=== PATIENT | female | born 1970 | race Caucasian/White ===

== ENCOUNTER 2020-07-24 10:13 | Emergency (ER) | payer OTHER ==
[~2020-07-24] VITALS: Ht 172.7 cm; Wt 118.2 kg
[2020-07-24] MEDS ORDERED: VENL37.598 PO ×2 (10:42→14:36)
[2020-07-24] MEDS ORDERED: BENZONATATE 100 MG CAP PO ONE (11:30)
[2020-07-24 11:54] VITALS: O2SAT 97
[2020-07-24 11:59] LABS: BASO # 0.1 10^3/uL (0.0-0.2); BASO % 0.9 % (0.0-1.0); EOS # 0.3 10^3/uL (0.0-0.5); EOS % 2.8 % (0.0-3.0); HEMATOCRIT 40.7 % (36.0-47.0); HEMOGLOBIN 13.4 g/dl (12.0-15.5); LYMPH % 33.5 % (24.0-44.0); MEAN CORPUSCULAR HEMOGLOBIN 30.9 pg (27.0-33.0); MEAN CORPUSCULAR HGB CONC 32.9 g/dl (32.0-36.5); MEAN CORPUSCULAR VOLUME 93.8 fl (80.0-96.0); MONO # 0.6 10^3/uL (0.0-0.8); MONO % 6.5 % (0.0-5.0); NEUTROPHILS # 4.9 10^3/uL (1.5-8.5); PLATELET COUNT, AUTOMATED 416 10^3/uL (150-450); RED BLOOD COUNT 4.34 10^6/uL (4.00-5.40); WHITE BLOOD COUNT 8.8 10^3/uL (4.0-10.0)
[2020-07-24] MEDS: COMBIVENT RESPIMAT 100-20MCG INHALER 4GM INH SCH ×2 (12:09→12:39)
--- NOTE | 2020-07-24 12:34 | REPVR ---
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 COMPARISON: No relevant prior studies available. FINDINGS: Lungs: Calcified granuloma in the right lung apex. Pleural space: Unremarkable. No pleural effusion. No pneumothorax. Heart/Mediastinum: Unremarkable. No cardiomegaly. Vasculature: Calcification of the thoracic aorta. Bones/joints: Unremarkable. IMPRESSION: No acute cardiopulmonary abnormality. Electronically signed by: Angela Morejon On 07/24/2020 12:33:40 PM
[2020-07-24 12:41] LABS: ALBUMIN 3.9 GM/DL (3.2-5.2); ALT/SGPT 25 U/L (12-78); BILIRUBIN,DIRECT < 0.1 MG/DL (0.0-0.2); BILIRUBIN,TOTAL 0.2 MG/DL (0.2-1.0); LIPASE 78 U/L (73-393); TOTAL PROTEIN 7.6 GM/DL (6.4-8.2)
[2020-07-24] MEDS ORDERED: ISOVUE-370 76% 100ML VIAL As Ordered ONE (12:43)
--- NOTE | 2020-07-24 13:41 | REPVR ---
PROCEDURE INFORMATION: Exam: CT Abdomen And Pelvis With Contrast Exam date and time: 07/24/2020 1:12 PM Age: 49 years old Clinical indication: Abdominal pain; Generalized; Additional info: L sided abd pain, h/o mesh hernia repair TECHNIQUE: Imaging protocol: Computed tomography of the abdomen and pelvis with intravenous contrast. Radiation optimization: All CT scans at this facility use at least one of these dose optimization techniques: automated exposure control; mA and/or kV adjustment per patient size (includes targeted exams where dose is matched to clinical indication); or iterative reconstruction. Contrast material: ISOVUE 370; Contrast volume: 100 ml; Contrast route: INTRAVENOUS (IV); COMPARISON: No relevant prior studies available. FINDINGS: Liver: Mild hepatomegaly. Gallbladder and bile ducts: Normal. No calcified stones. No ductal dilation. Pancreas: Normal. No ductal dilation. Spleen: Normal. No splenomegaly. Adrenals: Normal. No mass. Kidneys and ureters: Normal. No hydronephrosis. Stomach and bowel: Unremarkable. No obstruction. No mucosal thickening. Appendix: No evidence of appendicitis. Intraperitoneal space: Mild mesenteric edema. Vasculature: Mild atherosclerotic changes. Lymph nodes: Mildly prominent periportal lymph nodes, measuring up to 13 mm in short axis dimension, most likely reactive in nature. Several mildly enlarged mesenteric lymph nodes, measuring up to 12 mm in short axis dimension. Urinary bladder: Unremarkable as visualized. Reproductive: The patient appears to be status post hysterectomy. Bones/joints: Degenerative change of the spine. Mild bilateral hip joint DJD. Chronic right rib fracture. Soft tissues: Surgical mesh associated with the ventral abdominal wall. No recurrent hernia. IMPRESSION: 1. Mild mesenteric lymphadenopathy and mild mesenteric edema. 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 2. Mild hepatomegaly. Electronically signed by: Angela Morejon On 07/24/2020 13:40:24 PM
--- NOTE | 2020-07-24 13:48 | REPVR ---
PROCEDURE INFORMATION: Exam: CT Angiography Chest With Contrast Exam date and time: 07/24/2020 1:12 PM Age: 49 years old Clinical indication: Cough; Additional info: Cough, h/o pe, nodule on cxr TECHNIQUE: Imaging protocol: Computed tomographic angiography of the chest with intravenous contrast. 3D rendering (Not supervised by radiologist): MIP and/or 3D reconstructed images were created by the technologist. Radiation optimization: All CT scans at this facility use at least one of these dose optimization techniques: automated exposure control; mA and/or kV adjustment per patient size (includes targeted exams where dose is matched to clinical indication); or iterative reconstruction. Contrast material: ISOVUE 370; Contrast volume: 100 ml; Contrast route: INTRAVENOUS (IV); COMPARISON: CR PORTABLE CHEST X-RAY 07/24/2020 12:05 PM FINDINGS: Pulmonary arteries: Normal. No pulmonary emboli. Aorta: Minimal atherosclerotic change of the thoracic aorta. Lungs: Right upper lobe pneumatoceles. Noncalcified 2 mm right middle lobe pulmonary nodule (series 401, image 105). Noncalcified 4 mm right middle lobe pulmonary nodule, adjacent to the minor fissure (series 402, image 38). Pleural space: Unremarkable. No pneumothorax. No pleural effusion. Heart: Unremarkable. No cardiomegaly. No pericardial effusion. Lymph nodes: Mildly prominent right hilar lymph nodes, measuring up to 13 mm in short axis dimension. Bones/joints: Benign bone island in the medial right clavicle. Degenerative change of the spine. Chronic right posterior rib fracture. Soft tissues: Unremarkable. Other findings: Abdomen/pelvis findings are dictated separately. IMPRESSION: 1. Noncalcified 2 mm and 4 mm nodules in the right lung. For patients at low risk (minimal or absent history of smoking and of other known risk factors), no routine follow-up is indicated. For patients at high risk (history of smoking or of other known risk factors), consider optional CT Chest at 12 months. (Reference: Cresencio) 2. Mildly prominent right hilar lymph nodes. REFERENCES: Cresencio West, et al. Guidelines for Management of Incidental Pulmonary Nodules Detected on CT Images: From the Fleischner Society 2017. Radiology. 2017;284(1):228-243. Electronically signed by: Angela Morejon On 07/24/2020 13:48:14 PM
[2020-07-24 14:05] LABS: CPK CREATINE PHOSPHOKINASE 84 U/L (26-192); MB/CK RELATIVE INDEX 2.38 (< OR =4); NT-PRO BNP 25 PG/ML (<125); TROPONIN I < 0.02 NG/ML (< 0.10)
[2020-07-24] MEDS ORDERED: TESS100C PO (14:32)
[2020-07-24] MEDS ORDERED: PROAAER10 INH (14:32)
[2020-07-24 14:57] VITALS: BP 127/86
--- NOTE | 2020-07-26 09:07 | ED PDOC ---
Post-Departure Follow-Up called patient to inform of negative COVID test. pt expressed good understanding . DELFINA DELGADILLO TAYLOR E. PA-C Jul 26, 2020 09:07
--- NOTE | 2020-07-26 15:26 | ED PDOC ---
Post-Departure Follow-Up radiology report faxed to Jessica Potts MD Jul 26, 2020 15:26
== END 2020-07-24 14:59 | disposition home or self-care (01) ==
LOC: M ED 10:13
DX: J45.909 Unspecified asthma, uncomplicated (principal); J98.01 Acute bronchospasm; J06.9 Acute upper respiratory infection, unspecified; B34.9 Viral infection, unspecified; R10.9 Unspecified abdominal pain; I88.0 Nonspecific mesenteric lymphadenitis; R91.8 Other nonspecific abnormal finding of lung field; E66.9 Obesity, unspecified; F41.9 Anxiety disorder, unspecified; F32.9 Major depressive disorder, single episode, unspecified; Z86.718 Personal history of other venous thrombosis and embolism; Z87.891 Personal history of nicotine dependence; F19.11 Other psychoactive substance abuse, in remission; Z79.899 Other long term (current) drug therapy; Z88.5 Allergy status to narcotic agent
CPT/HCPCS: 71045; 71275; 74177; 80047; 80076; 81001; 82550; 82553; 83690; 83880; 85025; 99284; Q9967; U0003

== ENCOUNTER → 2020-10-21 | Outpatient (REF) | payer OTHER, MEDICAID ==
[~2020-10-21] MED LIST: PROAAER10 INH; TESS100C PO; VENL37.598 PO
[2020-10-21 16:06] LABS: HEMATOCRIT 38.1 % (36.0-47.0); HEMOGLOBIN 12.2 g/dl (12.0-15.5); MEAN CORPUSCULAR VOLUME 93.6 fl (80.0-96.0); PLATELET COUNT, AUTOMATED 344 10^3/uL (150-450); RED BLOOD COUNT 4.07 10^6/uL (4.00-5.40); WHITE BLOOD COUNT 7.4 10^3/uL (4.0-10.0)
[2020-10-21 16:45] LABS: ALBUMIN 4.2 GM/DL (3.2-5.2); ALT/SGPT 35 U/L (12-78); BILIRUBIN,TOTAL 0.5 MG/DL (0.2-1.0); BLOOD UREA NITROGEN 14 MG/DL (7-18); CALCIUM LEVEL 8.9 MG/DL (8.5-10.1); CARBON DIOXIDE LEVEL 29 MEQ/L (21-32); CHLORIDE LEVEL 105 MEQ/L (98-107); CHOLESTEROL LEVEL 230 MG/DL (<200); CHOLESTEROL RISK RATIO 4.791 (<5); CREATININE FOR GFR 0.77 MG/DL (0.55-1.30); GLOMERULAR FILTRATION RATE > 60.0 (>51); GLUCOSE, FASTING 94 MG/DL (70-100); HDL CHOLESTEROL 48 MG/DL (>40); LDL CHOLESTEROL 160 MG/DL (<100); NON-HDL-C 182 MG/DL; SODIUM LEVEL 138 MEQ/L (136-145); THYROID STIMULATING HORMONE 0.807 uIU/ML (0.358-3.740); TOTAL 25(OH) VITAMIN D 18.1 NG/ML (30.0-100.0); TOTAL PROTEIN 6.8 GM/DL (6.4-8.2); TRIGLYCERIDES LEVEL 112 MG/DL (<150)
== END ==
LOC: M LAB REF 15:42
PROVIDERS: ATTEND Physician Assistant
DX: K59.09 Other constipation (principal); Z00.00 Encounter for general adult medical examination without abnormal findings; F43.10 Post-traumatic stress disorder, unspecified; Z13.220 Encounter for screening for lipoid disorders; J45.20 Mild intermittent asthma, uncomplicated

== ENCOUNTER → 2021-01-05 | Outpatient (CLI) | payer OTHER ==
--- NOTE | 2021-01-05 15:57 | PFTRPT ---
Height: 68.00 Inches Weight: 286.00 Lbs BSA: 2.38 Diagnosis: J43.1 DATE: 01/05/2021 ORDERING PHYSICIAN: PERCY Hernandez Pre and post bronchodilator studies have excellent technical quality. The patient had marked difficulty with required maneuvers and performance of the required maneuvers is markedly suboptimal which hampered data acquisition. Forced vital capacity is normal. FEV1 out of proportion. Obstructive index is therefore reduced. Expiratory limit of the flow-volume loop suggests markedly suboptimal performance. No significant bronchodilator response is identified. Total lung capacity is normal. Residual volume is in proportion. Diffusing capacity unable to be performed as the patient was unable to perform the required maneuver. Hemoglobin is acceptable at 13.6. Airway resistance and conductance are normal. IMPRESSION: Due to the patient's inability to perform the required maneuvers, data acquisition is hampered but suspect underlying normal study. MTDD
== END ==
LOC: M CARPUL 15:14
PROVIDERS: ATTEND Physician Assistant
DX: J43.1 Panlobular emphysema (principal)

== ENCOUNTER → 2021-01-05 | Outpatient (CLI) | payer OTHER ==
--- NOTE | 2021-01-05 17:50 | REP ---
INDICATION: PAIN IN LEFT KNEE/ PFT APPT FIRST. COMPARISON: None. TECHNIQUE: Five views of the left knee. FINDINGS: Five views of the left knee demonstrate the diffuse osteoporosis. There is advanced 3 compartment osteoarthritis. These changes are most pronounced in the medial and patellofemoral compartments where there is sclerosis, subcortical cyst formation, and well established osteophyte formation. There is non articular spurring on the superior pole of patella as well. A normal fabella is noted. Some lateral spur formation is observed.. No fracture or subluxation is seen. . IMPRESSION: Advanced 3 compartment osteoarthritis of the left knee. Diffuse osteoporosis.. <Electronically signed by Bradley Arce > 01/05/21 [id number]
== END ==
LOC: M RAD 15:19
PROVIDERS: ATTEND Physician Assistant
DX: M17.12 Unilateral primary osteoarthritis, left knee (principal); M81.0 Age-related osteoporosis without current pathological fracture

== ENCOUNTER → 2021-01-21 | Outpatient (CLI) | payer OTHER ==
--- NOTE | 2021-01-21 19:12 | REP ---
INDICATION: LLE MASS, LUMP. COMPARISON: None. TECHNIQUE: Ultrasound of area of swelling in the left lower extremity chest above the ankle, nontender. FINDINGS: Ultrasonography of the area in question identify soft tissue edema. There is no focal nodule, mass, cyst or fluid collection. IMPRESSION: Soft tissue edema. No focal mass or cyst. <Electronically signed by Alex Grimaldo > 01/21/21 [id number]
== END ==
LOC: M RAD 14:22
PROVIDERS: ATTEND Physician Assistant
DX: R60.0 Localized edema (principal)

== ENCOUNTER → 2021-02-02 | Outpatient (CLI) | payer OTHER ==
--- NOTE | 2021-02-02 11:58 | DEXAMM ---
INDICATION: DISORDER OF BONE/M89.9. COMPARISON: None. TECHNIQUE: Bone density was measured using dual-energy x-ray absorptionmetry (DEXA). FINDINGS: AP SPINE L1-L4 BMD 1.024 g/cm2 Young Adult T-Score -1.4 Age Matched Z-Score -0.9. LT FEMUR, TOTAL BMD 0.685 g/cm2 Young Adult T-Score -2.6 Age Matched Z-Score -2.1. LT NECK BMD 0.687 g/cm2 Young Adult T-Score -2.5 Age Matched Z-Score -1.7. RT FEMUR, TOTAL BMD 0.831 g/cm2 Young Adult T-Score -1.4 Age Matched Z-Score -0.9. RT NECK BMD 0.864 g/cm2 Young Adult T-Score -1.3 Age Matched Z-Score -0.4. IMPRESSION: There is low bone density of the spine. There is osteoporosis of the left hip. There is low bone density of the right hip. FOLLOW-UP: Recommendation for the next bone density exam: 2 years. <Electronically signed by Bradley Arce > 02/02/21 [id number]
== END ==
LOC: M WHC 10:13
PROVIDERS: ATTEND Physician Assistant
DX: M89.9 Disorder of bone, unspecified (principal)

== ENCOUNTER → 2021-02-12 | Outpatient (CLI) | payer OTHER ==
[~2021-02-12] MED LIST changes: +ACET-897 PO; +CHLO125TA; +NAPR-885; +PRAZ2CAP; +VENL150C43; +VITA50005
== END ==
LOC: M LABSMTC 10:13
PROVIDERS: ATTEND Anesthesiology
DX: Z01.818 Encounter for other preprocedural examination (principal); Z11.52 Encounter for screening for COVID-19

== ENCOUNTER 2021-02-17 09:10 | Day surgery (SDC) | payer OTHER ==
[~2021-02-17] VITALS: Ht 172.7 cm; Wt 130.2 kg
[~2021-02-17 09:10] MED LIST changes: +LIDOCAINE 2% 100MG/5ML SDV (FOR ANES.) As Ordered ONE; +NS 1,000 ML IV ONE; +fentaNYL 100 MCG/2 ML INJECTION (J3010) As Ordered ONE; +propofoL 500 MG/50 ML VIAL As Ordered ONE
[2021-02-17] MEDS ORDERED: propofoL 200 MG/20 ML VIAL As Ordered ONE ×2 (10:34→10:45)
[2021-02-17] MEDS ORDERED: ELEVIEW SUBMUCOSAL INJ 10ML AMP As Ordered ONE (10:54)
--- NOTE | 2021-02-17 11:10 | ROOR ---
Patient Name: Joann Beth Procedure Date: 02/17/2021 10:06 AM Date of : 1970 Age: 50 Room: [facility] Gender: Female Note Status: Finalized Procedure: Upper GI endoscopy Indications: Epigastric abdominal pain, Heartburn Providers: Wander Abraham MD Referring MD: Esequiel Ceballos Requesting Provider: Medicines: Monitored Anesthesia Care Complications: No immediate complications. Procedure: Pre-Anesthesia Assessment: - Prior to the procedure, a History and Physical was performed, and patient medications and allergies were reviewed. The patient is competent. The risks and benefits of the procedure and the sedation options and risks were discussed with the patient. All questions were answered and informed consent was obtained. Patient identification and proposed procedure were verified by the physician, the nurse and the hammersmith helper in the endoscopy suite. Mental Status Examination: alert and oriented. Airway Examination: normal oropharyngeal airway and neck mobility. Respiratory Examination: clear to auscultation. CV Examination: normal. Prophylactic Antibiotics: The patient does not require prophylactic antibiotics. Prior Anticoagulants: The patient has taken no previous anticoagulant or antiplatelet agents. ASA Grade Assessment: III - A patient with severe systemic disease. After reviewing the risks and benefits, the patient was deemed in satisfactory condition to undergo the procedure. The anesthesia plan was to use monitored anesthesia care (MAC). Immediately prior to administration of medications, the patient was re-assessed for adequacy to receive sedatives. The heart rate, respiratory rate, oxygen saturations, blood pressure, adequacy of pulmonary ventilation, and response to care were monitored throughout the procedure. The physical status of the patient was re-assessed after the procedure. The Endoscope was introduced through the mouth, and advanced to the second part of duodenum. The upper GI endoscopy was accomplished without difficulty. The patient tolerated the procedure fairly well. Findings: LA Grade C (one or more mucosal breaks continuous between tops of 2 or more mucosal folds, less than 75% circumference) esophagitis with no bleeding was found 35 to 37 cm from the incisors. Biopsies were taken with a cold forceps for histology. Three non-bleeding superficial gastric ulcers with no stigmata of bleeding were found in the prepyloric region of the stomach. The largest lesion was less than one mm in largest dimension. This was biopsied with a cold forceps for histology. Estimated blood loss was minimal. The first portion of the duodenum and second portion of the duodenum were normal. Impression: - LA Grade C reflux esophagitis. Rule out Cantrell's esophagus. Biopsied. - Non-bleeding gastric ulcers with no stigmata of bleeding. Biopsied. - Normal first portion of the duodenum and second portion of the duodenum. Recommendation: - Discharge patient to home (ambulatory). - Use Protonix (pantoprazole) 40 mg PO daily for 3 months. Procedure Code(s): --- Professional --- 10756, Esophagogastroduodenoscopy, flexible, transoral; with biopsy, single or multiple Diagnosis Code(s): --- Professional --- K21.0, Gastro-esophageal reflux disease with esophagitis R10.13, Epigastric pain K25.9, Gastric ulcer, unspecified as acute or chronic, without hemorrhage or perforation R12, Heartburn CPT copyright 2019 [employer]. All rights reserved. The codes documented in this report are preliminary and upon test borer helper review may be revised to meet current compliance requirements. Wander Abraham MD Wander Abraham MD 02/17/2021 11:10:10 AM Electronically signed by Wander Abraham MD Number of Addenda: 0 Note Initiated On: 02/17/2021 10:06 AM Estimated Blood Loss: Estimated blood loss was minimal.
--- NOTE | 2021-02-17 11:16 | ROOR ---
Patient Name: Joann Beth Procedure Date: 02/17/2021 10:08 AM Date of : 1970 Age: 50 Room: [facility] Gender: Female Note Status: Finalized Procedure: Colonoscopy Indications: Screening for colon cancer: Family history of colorectal cancer in distant relative(s) 60 or older Providers: Wander Abraham MD Referring MD: Esequiel Ceballos Requesting Provider: Medicines: Monitored Anesthesia Care Complications: No immediate complications. Estimated blood loss: Minimal. Procedure: Pre-Anesthesia Assessment: - Prior to the procedure, a History and Physical was performed, and patient medications and allergies were reviewed. The patient is competent. The risks and benefits of the procedure and the sedation options and risks were discussed with the patient. All questions were answered and informed consent was obtained. Patient identification and proposed procedure were verified by the physician, the nurse and the casing builder in the endoscopy suite. Mental Status Examination: alert and oriented. Airway Examination: normal oropharyngeal airway and neck mobility. Respiratory Examination: clear to auscultation. CV Examination: normal. Prophylactic Antibiotics: The patient does not require prophylactic antibiotics. Prior Anticoagulants: The patient has taken no previous anticoagulant or antiplatelet agents. ASA Grade Assessment: III - A patient with severe systemic disease. After reviewing the risks and benefits, the patient was deemed in satisfactory condition to undergo the procedure. The anesthesia plan was to use monitored anesthesia care (MAC). Immediately prior to administration of medications, the patient was re-assessed for adequacy to receive sedatives. The heart rate, respiratory rate, oxygen saturations, blood pressure, adequacy of pulmonary ventilation, and response to care were monitored throughout the procedure. The physical status of the patient was re-assessed after the procedure. The Colonoscope was introduced through the anus and advanced to the cecum, identified by appendiceal orifice and ileocecal valve. The colonoscopy was technically difficult and complex due to a redundant colon, the patient's body habitus and the patient's discomfort during the procedure. Successful completion of the procedure was aided by increasing the dose of sedation medication. The quality of the bowel preparation was adequate. Findings: Hemorrhoids were found on perianal exam. A diminutive polyp was found in the ascending colon. The polyp was flat. The polyp was removed with a cold biopsy forceps. Resection and retrieval were complete. Estimated blood loss was minimal. A 10 mm polyp was found in the sigmoid colon. The polyp was pedunculated. The polyp was removed with a hot snare. Resection and retrieval were complete. Estimated blood loss: none. A 5 mm polyp was found in the sigmoid colon. The polyp was flat. Area was successfully injected with 2 mL saline for a lift polypectomy. Estimated blood loss: none. The polyp was removed with a hot snare. Resection and retrieval were complete. Estimated blood loss: none. The retroflexed view of the distal rectum and anal verge was normal and showed no anal or rectal abnormalities. Impression: - Hemorrhoids found on perianal exam. - One diminutive polyp in the ascending colon, removed with a cold biopsy forceps. Resected and retrieved. - One 10 mm polyp in the sigmoid colon, removed with a hot snare. Resected and retrieved. - One 5 mm polyp in the sigmoid colon, removed with a hot snare. Resected and retrieved. Injected. - The distal rectum and anal verge are normal on retroflexion view. Recommendation: - Discharge patient to home (ambulatory). - Continue present medications. - Repeat colonoscopy in 3 - 5 years for surveillance based on pathology results. Procedure Code(s): --- Professional --- 99309, Colonoscopy, flexible; with removal of tumor(s), polyp(s), or other lesion(s) by snare technique 96608, 59, Colonoscopy, flexible; with biopsy, single or multiple 85875, Colonoscopy, flexible; with directed submucosal injection(s), any substance Diagnosis Code(s): --- Professional --- Z12.11, Encounter for screening for malignant neoplasm of colon Z80.0, Family history of malignant neoplasm of digestive organs K64.9, Unspecified hemorrhoids K63.5, Polyp of colon CPT copyright 2019 [employer]. All rights reserved. The codes documented in this report are preliminary and upon condenser winder review may be revised to meet current compliance requirements. Wander Abraham MD Wander Abraham MD 02/17/2021 11:16:12 AM Electronically signed by Wander Abraham MD Number of Addenda: 0 Note Initiated On: 02/17/2021 10:08 AM Estimated Blood Loss: Estimated blood loss was minimal.
[2021-02-17 11:45] VITALS: BP 120/67
== END 2021-02-17 12:10 | disposition home or self-care (01) ==
LOC: M OPP 09:10
PROVIDERS: ATTEND Surgery
DX: K63.5 Polyp of colon (principal); K64.8 Other hemorrhoids; K59.00 Constipation, unspecified; Z80.0 Family history of malignant neoplasm of digestive organs; K21.00 Gastro-esophageal reflux disease with esophagitis, without bleeding; K25.9 Gastric ulcer, unspecified as acute or chronic, without hemorrhage or perforation; R10.13 Epigastric pain; J44.9 Chronic obstructive pulmonary disease, unspecified; F17.210 Nicotine dependence, cigarettes, uncomplicated; Z79.899 Other long term (current) drug therapy; Z88.5 Allergy status to narcotic agent; Z85.41 Personal history of malignant neoplasm of cervix uteri
CPT/HCPCS: 43239; 45380; 45381; 45385; 88305; J3010

== ENCOUNTER 2021-04-27 12:09 | Emergency (ER) | payer OTHER ==
[~2021-04-27] VITALS: Ht 172.7 cm; Wt 130.3 kg
[2021-04-27 12:09] VITALS: BP 133/64
[~2021-04-27 12:09] MED LIST changes: +ERGO500029; -LIDOCAINE 2% 100MG/5ML SDV (FOR ANES.) As Ordered ONE; -NS 1,000 ML IV ONE; -VITA50005; -fentaNYL 100 MCG/2 ML INJECTION (J3010) As Ordered ONE; -propofoL 500 MG/50 ML VIAL As Ordered ONE
== END 2021-04-27 14:35 | disposition left against medical advice (07) ==
LOC: M ED 12:09
DX: Z53.29 Procedure and treatment not carried out because of patient's decision for other reasons (principal)

== ENCOUNTER → 2021-08-03 | Outpatient (CLI) | payer OTHER ==
--- NOTE | 2021-08-04 04:53 | REP ---
INDICATION: ABN FINDING OF LUNG COMPARISON: None TECHNIQUE: Axial noncontrast images from the thoracic inlet to the upper abdomen with coronal and sagittal reformations. This CT examination was performed using the following dose reduction techniques: Automated exposure control, adjustment of mA and/or kv according to the patient's size, and use of iterative reconstruction technique. FINDINGS: The bilateral lung silva are well aerated and relatively symmetric/clear. The 2 small 2-4 mm nonsolid, noncalcified perifissural nodules are again identified (series 201; image 47, 48) and unchanged. No acute pulmonary parenchymal consolidation, new suspicious nodule, or mass. Few small bullae suggest the possibility of early emphysematous disease. No effusion. No pneumothorax. Tracheobronchial tree is patent. Mediastinal lymph nodes measuring up to 10 mm short axis in the precarinal space are essentially unchanged. Thoracic aorta, pulmonary vasculature and heart/pericardium are normal. Surrounding musculoskeletal structures are intact. Limited upper abdomen demonstrates normal bilateral adrenal glands and hepatosteatosis. IMPRESSION: 1. The previously identified small nodules in the right middle lobe are essentially unchanged. High risk patients may warrant 12 month follow-up to confirm stability over 2 years. 2. No new mediastinal or pleuroparenchymal process appreciated. <Electronically signed by Torsten Jimenez > 08/04/21 [id number]
== END ==
LOC: M RAD 17:30
PROVIDERS: ATTEND Physician Assistant
DX: R91.8 Other nonspecific abnormal finding of lung field (principal)

== ENCOUNTER 2022-07-23 21:25 | Emergency (ER) | payer OTHER ==
[~2022-07-23] VITALS: Ht 172.7 cm; Wt 118.2 kg
[2022-07-23 22:51] VITALS: O2SAT 98
[2022-07-23] MEDS ORDERED: BENZONATATE 100MG CAPSULE PO ONE (23:30)
[2022-07-24] MEDS ORDERED: IBUPROFEN 800 MG TAB PO ONE (00:05)
[2022-07-24] MEDS ORDERED: COMBIVENT RESPIMAT 100-20MCG INHALER 4GM INH STA (00:05)
[2022-07-24] MEDS ORDERED: ONDANSETRON 4MG ORAL DISINTEGRATING TAB PO ONE (00:05)
[2022-07-24] MEDS ORDERED: COMBAER6 INH (00:54)
[2022-07-24] MEDS ORDERED: BENZ200C70 PO (00:54)
[2022-07-24 01:08] VITALS: BP 160/80
== END 2022-07-24 01:09 | disposition home or self-care (01) ==
LOC: M ED 21:25
DX: U07.1 COVID-19 (principal); J44.9 Chronic obstructive pulmonary disease, unspecified; F17.200 Nicotine dependence, unspecified, uncomplicated; F41.9 Anxiety disorder, unspecified; Z88.5 Allergy status to narcotic agent; Z91.030 Bee allergy status

== ENCOUNTER → 2022-09-19 | Outpatient (REF) | payer OTHER ==
[~2022-09-19] MED LIST changes: +BENZ200C70 PO; +COMBAER6 INH
== END ==
LOC: M LAB REF 16:15
PROVIDERS: ATTEND Physician Assistant
DX: J06.9 Acute upper respiratory infection, unspecified (principal); J02.9 Acute pharyngitis, unspecified

== ENCOUNTER → 2022-12-21 | Outpatient (REF) | payer OTHER | LOC: M LAB REF 16:27 | PROVIDERS: ATTEND Physician Assistant | DX: J02.9 Acute pharyngitis, unspecified (principal) ==

== ENCOUNTER → 2023-01-04 | Outpatient (REF) | payer OTHER ==
[2023-01-04 17:11] LABS: BASO # 0.1 10^3/uL (0.0-0.2); BASO % 0.9 % (0.0-1.0); EOS # 0.3 10^3/uL (0.0-0.5); EOS % 2.9 % (0.0-3.0); HEMATOCRIT 38.1 % (36.0-47.0); HEMOGLOBIN 12.6 g/dl (12.0-15.5); LYMPH # 3.4 10^3/uL (1.5-5.0); LYMPH % 38.4 % (24.0-44.0); MEAN CORPUSCULAR HEMOGLOBIN 31.5 pg (27.0-33.0); MEAN CORPUSCULAR HGB CONC 33.1 g/dl (32.0-36.5); MEAN CORPUSCULAR VOLUME 95.3 fl (80.0-96.0); MONO # 0.6 10^3/uL (0.0-0.8); MONO % 7.1 % (2.0-8.0); NEUTROPHILS # 4.4 10^3/uL (1.5-8.5); NEUTROPHILS % 50.6 % (36.0-66.0); PLATELET COUNT, AUTOMATED 371 10^3/uL (150-450); WHITE BLOOD COUNT 8.8 10^3/uL (4.0-10.0)
[2023-01-04 17:25] LABS: HEMOGLOBIN A1c 6.3 % (4.0-6.0)
[2023-01-04 17:37] LABS: ALBUMIN 4.1 G/DL (3.2-5.2); ALKALINE PHOSPHATASE 99 U/L (46-116); ALT/SGPT 84 U/L (7.0-40); AST/SGOT 58 U/L (<34); BILIRUBIN,TOTAL 0.6 MG/DL (0.3-1.2); BLOOD UREA NITROGEN 28 MG/DL (9-23); CALCIUM LEVEL 9.8 MG/DL (8.5-10.1); CARBON DIOXIDE LEVEL 30 MMOL/L (20-31); CHLORIDE LEVEL 99 MMOL/L (98-107); CHOLESTEROL LEVEL 331 MG/DL (<200); CHOLESTEROL RISK RATIO 7.89 (<5); CREATININE FOR GFR 0.89 MG/DL (0.55-1.30); GLOMERULAR FILTRATION RATE > 60.0 (>51); GLUCOSE, FASTING 116 MG/DL (60-100); HDL CHOLESTEROL 41.9 MG/DL (>40); LDL CHOLESTEROL 212.5 MG/DL (<100); NON-HDL-C 289.1 MG/DL; POTASSIUM SERUM 4.5 MMOL/L (3.5-5.1); SODIUM LEVEL 136 MMOL/L (136-145); THYROID STIMULATING HORMONE 0.843 uIU/ML (0.55-4.78); TOTAL 25(OH) VITAMIN D 55.5 NG/ML (20.0-100.0); TOTAL PROTEIN 7.6 G/DL (5.7-8.2); TRIGLYCERIDES LEVEL 383 MG/DL (<150)
== END ==
LOC: M LAB REF 16:30
PROVIDERS: ATTEND Physician Assistant
DX: E78.5 Hyperlipidemia, unspecified (principal); J45.20 Mild intermittent asthma, uncomplicated; E55.9 Vitamin D deficiency, unspecified; I10 Essential (primary) hypertension; R73.01 Impaired fasting glucose

== ENCOUNTER → 2023-03-08 | Outpatient (REF) | payer OTHER ==
[2023-03-08 13:19] LABS: ALBUMIN 3.8 G/DL (3.2-5.2); BILIRUBIN,DIRECT 0.2 MG/DL (<0.4); BILIRUBIN,TOTAL 0.6 MG/DL (0.3-1.2); CHOLESTEROL RISK RATIO 5.1 (<5); HDL CHOLESTEROL 37.8 MG/DL (>40); LDL CHOLESTEROL 117.2 MG/DL (<100); NON-HDL-C 155.2 MG/DL; TOTAL PROTEIN 7.3 G/DL (5.7-8.2)
== END ==
LOC: M LAB REF 12:24
PROVIDERS: ATTEND Physician Assistant
DX: E78.5 Hyperlipidemia, unspecified (principal)

== ENCOUNTER → 2023-04-28 | Outpatient (REF) | payer OTHER | LOC: M LAB REF 16:37 | PROVIDERS: ATTEND Physician Assistant | DX: Z79.899 Other long term (current) drug therapy (principal) ==

== ENCOUNTER → 2023-06-14 | Outpatient (CLI) | payer OTHER | LOC: M SOG 07:54 | PROVIDERS: ATTEND Orthopaedic Surgery | DX: M25.562 Pain in left knee (principal) ==

== ENCOUNTER → 2023-07-31 | Outpatient (REF) | payer OTHER ==
[2023-07-31 18:13] LABS: CREATININE, URINE 192.1 MG/DL; MAU/CREAT RATIO 5.7 MCG/MG (0.0-30.0)
[2023-07-31 18:38] LABS: BASO # 0.1 10^3/uL (0.0-0.2); BASO % 0.9 % (0.0-1.0); EOS # 0.3 10^3/uL (0.0-0.5); EOS % 2.3 % (0.0-3.0); HEMATOCRIT 40.7 % (36.0-47.0); HEMOGLOBIN 13.1 g/dl (12.0-15.5); LYMPH # 4.4 10^3/uL (1.5-5.0); LYMPH % 39.1 % (24.0-44.0); MEAN CORPUSCULAR HGB CONC 32.2 g/dl (32.0-36.5); MEAN CORPUSCULAR VOLUME 96.4 fl (80.0-96.0); MONO # 0.9 10^3/uL (0.0-0.8); MONO % 7.8 % (2.0-8.0); NEUTROPHILS # 5.6 10^3/uL (1.5-8.5); NEUTROPHILS % 49.6 % (36.0-66.0); PLATELET COUNT, AUTOMATED 452 10^3/uL (150-450); RED BLOOD COUNT 4.22 10^6/uL (4.00-5.40); WHITE BLOOD COUNT 11.3 10^3/uL (4.0-10.0)
[2023-07-31 18:43] LABS: ALBUMIN 4.3 G/DL (3.2-5.2); ALKALINE PHOSPHATASE 125 U/L (46-116); ALT/SGPT 58 U/L (7.0-40); AST/SGOT 37 U/L (<34); BILIRUBIN,TOTAL 0.4 MG/DL (0.3-1.2); BLOOD UREA NITROGEN 15 MG/DL (9-23); CARBON DIOXIDE LEVEL 30 MMOL/L (20-31); CHLORIDE LEVEL 101 MMOL/L (98-107); CREATININE FOR GFR 0.79 MG/DL (0.55-1.30); GLOMERULAR FILTRATION RATE > 60.0 (>51); GLUCOSE, FASTING 80 MG/DL (60-100); SODIUM LEVEL 137 MMOL/L (136-145); TOTAL PROTEIN 7.6 G/DL (5.7-8.2)
[2023-07-31 18:44] LABS: THYROID STIMULATING HORMONE 1.061 uIU/ML (0.55-4.78)
[2023-07-31 19:49] LABS: HEMOGLOBIN A1c 5.5 % (4.0-6.0)
== END ==
LOC: M LAB REF 16:21
PROVIDERS: ATTEND Pediatrics
DX: E11.69 Type 2 diabetes mellitus with other specified complication (principal)

== ENCOUNTER 2023-11-25 15:11 | Emergency (ER) | payer OTHER ==
[2023-11-25] MEDS ORDERED: GABA-282 (15:29)
[2023-11-25] MEDS ORDERED: TRUL0.5I (15:29)
[2023-11-25] MEDS ORDERED: CETI-24 (15:29)
[2023-11-25] MEDS ORDERED: ALEN70TA82 (15:29)
[2023-11-25] MEDS ORDERED: MAGN400T35 (15:29)
[2023-11-25] MEDS ORDERED: ATOR1TAB21 (15:29)
[2023-11-25 17:15] LABS: BASO # 0.1 10^3/uL (0.0-0.2); BASO % 0.8 % (0.0-1.0); EOS # 0.2 10^3/uL (0.0-0.5); EOS % 2.4 % (0.0-3.0); HEMOGLOBIN 10.9 g/dl (12.0-15.5); LYMPH # 2.8 10^3/uL (1.5-5.0); LYMPH % 32.2 % (24.0-44.0); MEAN CORPUSCULAR HEMOGLOBIN 30.5 pg (27.0-33.0); MEAN CORPUSCULAR VOLUME 92.4 fl (80.0-96.0); MONO # 0.7 10^3/uL (0.0-0.8); MONO % 8.2 % (2.0-8.0); NEUTROPHILS # 4.9 10^3/uL (1.5-8.5); NEUTROPHILS % 56.2 % (36.0-66.0); PLATELET COUNT, AUTOMATED 349 10^3/uL (150-450); RED BLOOD COUNT 3.57 10^6/uL (4.00-5.40); WHITE BLOOD COUNT 8.7 10^3/uL (4.0-10.0)
[2023-11-25 17:34] LABS: ALBUMIN 3.7 G/DL (3.2-5.2); ALKALINE PHOSPHATASE 89 U/L (46-116); ALT/SGPT 24 U/L (7.0-40); AST/SGOT 22 U/L (<34); BILIRUBIN,TOTAL 0.6 MG/DL (0.3-1.2); BLOOD UREA NITROGEN 16 MG/DL (9-23); CALCIUM LEVEL 8.9 MG/DL (8.5-10.1); CARBON DIOXIDE LEVEL 28 MMOL/L (20-31); CHLORIDE LEVEL 103 MMOL/L (98-107); CREATININE FOR GFR 0.66 MG/DL (0.55-1.30); GLOMERULAR FILTRATION RATE > 60.0 (>51); GLUCOSE, FASTING 91 MG/DL (60-100); POTASSIUM SERUM 4.2 MMOL/L (3.5-5.1); SODIUM LEVEL 136 MMOL/L (136-145); TOTAL PROTEIN 6.9 G/DL (5.7-8.2)
[2023-11-25 17:38] LABS: FREE T4 1.16 NG/DL (0.89-1.76); THYROID STIMULATING HORMONE 0.687 uIU/ML (0.55-4.78)
[2023-11-25] MEDS ORDERED: IBUP-1022 PO (17:59)
[2023-11-25 18:02] VITALS: BP 153/87; TEMP 97.6; O2SAT 96
== END 2023-11-25 18:10 | disposition home or self-care (01) ==
LOC: M ED 15:11
DX: R60.0 Localized edema (principal); J45.909 Unspecified asthma, uncomplicated; J44.9 Chronic obstructive pulmonary disease, unspecified; I26.99 Other pulmonary embolism without acute cor pulmonale; Z91.030 Bee allergy status; Z88.8 Allergy status to other drugs, medicaments and biological substances; Z79.1 Long term (current) use of non-steroidal anti-inflammatories (NSAID); Z79.899 Other long term (current) drug therapy; Z79.51 Long term (current) use of inhaled steroids; Z79.4 Long term (current) use of insulin

== ENCOUNTER 2023-12-03 16:44 | Emergency (ER) | payer OTHER ==
[~2023-12-03] VITALS: Ht 172.7 cm; Wt 119.2 kg
[~2023-12-03 16:44] MED LIST changes: +ALEN70TA82 PO; +ATOR1TAB21 PO; +CETI-24; -ERGO500029; +ERGO500029 PO; +GABA-282 PO; +IBUP-1022 PO; +MAGN400T35 PO; -NAPR-885; +NAPR-885 PO; +TRUL0.5I INJ; -VENL150C43; +VENL150C43 PO
[2023-12-03 16:45] VITALS: BP 170/80; TEMP 97; O2SAT 98
[2023-12-03 18:12] VITALS: O2SAT 95
[2023-12-03] MEDS ORDERED: VENL75CA47 PO (18:21)
[2023-12-03] MEDS ORDERED: HOME MED LIST COMPLETE! XX SCH (18:25)
[2023-12-03] MEDS ORDERED: NIRMATRELVIR/RITONAVIR CO-PACK (EMERGENCY USE AUTH) PO SCH ×2 (18:45→21:00)
== END 2023-12-03 19:01 | disposition home or self-care (01) ==
LOC: M ED 16:44
DX: U07.1 COVID-19 (principal); E11.9 Type 2 diabetes mellitus without complications; I10 Essential (primary) hypertension; F41.9 Anxiety disorder, unspecified; F32.A Depression, unspecified; Z88.5 Allergy status to narcotic agent; Z91.030 Bee allergy status; Z79.899 Other long term (current) drug therapy; Z79.85 Long-term (current) use of injectable non-insulin antidiabetic drugs

== ENCOUNTER → 2024-01-18 | Outpatient (REF) | payer OTHER ==
[~2024-01-18] MED LIST changes: +VENL75CA47 PO
== END ==
LOC: M LAB REF 16:24
PROVIDERS: ATTEND Physician Assistant
DX: Z79.899 Other long term (current) drug therapy (principal)

== ENCOUNTER → 2024-03-06 | Outpatient (REF) | payer OTHER ==
[2024-03-06 18:05] LABS: BASO # 0.1 10^3/uL (0.0-0.2); BASO % 0.7 % (0.0-1.0); EOS # 0.2 10^3/uL (0.0-0.5); EOS % 1.4 % (0.0-3.0); HEMATOCRIT 42.4 % (36.0-47.0); HEMOGLOBIN 13.7 g/dl (12.0-15.5); MEAN CORPUSCULAR HGB CONC 32.3 g/dl (32.0-36.5); MONO # 0.6 10^3/uL (0.0-0.8); MONO % 5.4 % (2.0-8.0); NEUTROPHILS # 6.6 10^3/uL (1.5-8.5); NEUTROPHILS % 57.2 % (36.0-66.0); PLATELET COUNT, AUTOMATED 484 10^3/uL (150-450); RED BLOOD COUNT 4.56 10^6/uL (4.00-5.40); WHITE BLOOD COUNT 11.5 10^3/uL (4.0-10.0)
[2024-03-06 18:36] LABS: ALBUMIN 3.9 G/DL (3.2-5.2); ALKALINE PHOSPHATASE 82 U/L (46-116); ALT/SGPT 11 U/L (7.0-40); AST/SGOT < 8 U/L (<34); BILIRUBIN,TOTAL 0.4 MG/DL (0.3-1.2); BLOOD UREA NITROGEN 10 MG/DL (9-23); CALCIUM LEVEL 9.9 MG/DL (8.5-10.1); CARBON DIOXIDE LEVEL 28 MMOL/L (20-31); CHLORIDE LEVEL 103 MMOL/L (98-107); CREATININE FOR GFR 0.73 MG/DL (0.55-1.30); GLOMERULAR FILTRATION RATE > 60.0 (>51); GLUCOSE, FASTING 87 MG/DL (60-100); POTASSIUM SERUM 4.6 MMOL/L (3.5-5.1); SODIUM LEVEL 136 MMOL/L (136-145); TOTAL PROTEIN 7.1 G/DL (5.7-8.2)
[2024-03-06 18:37] LABS: VITAMIN B12 LEVEL 284 PG/ML (211-911)
[2024-03-06 18:39] LABS: HEMOGLOBIN A1c 5.3 % (4.0-6.0)
== END ==
LOC: M LAB REF 16:21
PROVIDERS: ATTEND Physician Assistant
DX: E11.69 Type 2 diabetes mellitus with other specified complication (principal); K21.9 Gastro-esophageal reflux disease without esophagitis; R20.0 Anesthesia of skin

== ENCOUNTER 2024-10-04 11:38 | Day surgery (SDC) | payer OTHER ==
[~2024-10-04] VITALS: Ht 172.7 cm; Wt 91.2 kg
[~2024-10-04 11:38] MED LIST changes: +DOXY100C3 PO; +GABA-1172 PO; -GABA-282 PO; +METH-1177 PO; +PANT40TA29 PO; +PREG100C2 PO; +TRUL10IN SC
[2024-10-04] MEDS ORDERED: propofoL 200 MG/20 ML VIAL As Ordered ONE (11:47)
[2024-10-04 13:17] VITALS: TEMP 97.7
[2024-10-04 13:40] VITALS: BP 124/60; O2SAT 98
== END 2024-10-04 13:46 | disposition home or self-care (01) ==
LOC: M OPP 11:38
PROVIDERS: ATTEND Surgery
DX: K21.00 Gastro-esophageal reflux disease with esophagitis, without bleeding (principal); K31.A19 Gastric intestinal metaplasia without dysplasia, unspecified site; K22.70 Barrett's esophagus without dysplasia; Z86.0100 Personal history of colon polyps, unspecified; K59.00 Constipation, unspecified; K31.89 Other diseases of stomach and duodenum; K25.9 Gastric ulcer, unspecified as acute or chronic, without hemorrhage or perforation; I10 Essential (primary) hypertension; E78.00 Pure hypercholesterolemia, unspecified; E11.9 Type 2 diabetes mellitus without complications; M19.90 Unspecified osteoarthritis, unspecified site; F41.9 Anxiety disorder, unspecified; F32.A Depression, unspecified; F43.10 Post-traumatic stress disorder, unspecified; J45.909 Unspecified asthma, uncomplicated; J44.9 Chronic obstructive pulmonary disease, unspecified; F17.210 Nicotine dependence, cigarettes, uncomplicated; Z86.711 Personal history of pulmonary embolism; Z88.5 Allergy status to narcotic agent; Z91.030 Bee allergy status; Z79.85 Long-term (current) use of injectable non-insulin antidiabetic drugs; Z79.891 Long term (current) use of opiate analgesic; Z79.899 Other long term (current) drug therapy

== ENCOUNTER → 2024-10-24 | Outpatient (REF) | payer OTHER ==
[2024-10-24 17:24] LABS: CREATININE, URINE 213.8 MG/DL; MAU/CREAT RATIO 3.7 MCG/MG (0.0-30.0)
== END ==
LOC: M LAB REF 16:01
PROVIDERS: ATTEND Physician Assistant
DX: E11.69 Type 2 diabetes mellitus with other specified complication (principal)

== ENCOUNTER → 2024-10-24 | Outpatient (REF) | payer OTHER ==
[2024-10-24 18:09] LABS: ALBUMIN 3.5 G/DL (3.2-5.2); ALKALINE PHOSPHATASE 66 U/L (35-104); ALT/SGPT 18 U/L (7.0-40); AST/SGOT 21 U/L (<34); BILIRUBIN,TOTAL 0.3 MG/DL (0.3-1.2); BLOOD UREA NITROGEN 15 MG/DL (9-23); CALCIUM LEVEL 9.4 MG/DL (8.5-10.1); CARBON DIOXIDE LEVEL 30 MMOL/L (20-31); CHLORIDE LEVEL 101 MMOL/L (98-107); CHOLESTEROL LEVEL 197 MG/DL (<200); CHOLESTEROL RISK RATIO 4.52 (<5); CREATININE FOR GFR 0.72 MG/DL (0.55-1.30); GLOMERULAR FILTRATION RATE > 60.0 (>51); GLUCOSE, FASTING 80 MG/DL (60-100); HDL CHOLESTEROL 43.5 MG/DL (>40); LDL CHOLESTEROL 136.7 MG/DL (<100); NON-HDL-C 153.5 MG/DL; POTASSIUM SERUM 4.1 MMOL/L (3.5-5.1); SODIUM LEVEL 137 MMOL/L (136-145); TOTAL PROTEIN 8.2 G/DL (5.7-8.2); TRIGLYCERIDES LEVEL 84 MG/DL (<150)
[2024-10-24 18:20] LABS: HEMATOCRIT 32.9 % (36.0-47.0); HEMOGLOBIN 10.7 g/dl (12.0-15.5); MEAN CORPUSCULAR HEMOGLOBIN 29.8 pg (27.0-33.0); MEAN CORPUSCULAR HGB CONC 32.5 g/dl (32.0-36.5); MEAN CORPUSCULAR VOLUME 91.6 fl (80.0-96.0); PLATELET COUNT, AUTOMATED 459 10^3/uL (150-450); RED BLOOD COUNT 3.59 10^6/uL (4.00-5.40)
[2024-10-24 18:38] LABS: HEMOGLOBIN A1c 5.3 % (4.0-6.0)
== END ==
LOC: M LAB REF 16:11
PROVIDERS: ATTEND Physician Assistant
DX: E11.69 Type 2 diabetes mellitus with other specified complication (principal)

== ENCOUNTER → 2024-12-09 | Outpatient (REF) | payer OTHER ==
[2024-12-09 17:33] LABS: BASO # 0.1 10^3/uL (0.0-0.2); BASO % 0.9 % (0.0-1.0); EOS # 0.2 10^3/uL (0.0-0.5); EOS % 3.1 % (0.0-3.0); HEMOGLOBIN 10.5 g/dl (12.0-15.5); LYMPH # 3.3 10^3/uL (1.5-5.0); LYMPH % 43.3 % (24.0-44.0); MEAN CORPUSCULAR HEMOGLOBIN 29.7 pg (27.0-33.0); MEAN CORPUSCULAR HGB CONC 31.8 g/dl (32.0-36.5); MEAN CORPUSCULAR VOLUME 93.2 fl (80.0-96.0); MONO # 0.6 10^3/uL (0.0-0.8); MONO % 7.7 % (2.0-8.0); NEUTROPHILS # 3.4 10^3/uL (1.5-8.5); NEUTROPHILS % 44.7 % (36.0-66.0); PLATELET COUNT, AUTOMATED 362 10^3/uL (150-450); RED BLOOD COUNT 3.54 10^6/uL (4.00-5.40); WHITE BLOOD COUNT 7.6 10^3/uL (4.0-10.0)
[2024-12-09 18:05] LABS: ALBUMIN 3.3 G/DL (3.2-5.2); ALKALINE PHOSPHATASE 83 U/L (35-104); ALT/SGPT < 9 U/L (7.0-40); AST/SGOT 11 U/L (<34); BILIRUBIN,TOTAL 0.2 MG/DL (0.3-1.2); BLOOD UREA NITROGEN 20 MG/DL (9-23); CALCIUM LEVEL 8.9 MG/DL (8.5-10.1); CARBON DIOXIDE LEVEL 31 MMOL/L (20-31); CHLORIDE LEVEL 102 MMOL/L (98-107); CREATININE FOR GFR 0.68 MG/DL (0.55-1.30); GLOMERULAR FILTRATION RATE > 60.0 (>51); GLUCOSE, FASTING 72 MG/DL (60-100); POTASSIUM SERUM 4.4 MMOL/L (3.5-5.1); SODIUM LEVEL 138 MMOL/L (136-145); TOTAL PROTEIN 7.5 G/DL (5.7-8.2)
[2024-12-09 18:07] LABS: FOLATE 14.4 NG/ML (>5.4); VITAMIN B12 LEVEL 256 PG/ML (211-911)
== END ==
LOC: M LAB REF 16:33
PROVIDERS: ATTEND Nurse Practitioner Family
DX: R60.0 Localized edema (principal); E66.9 Obesity, unspecified

== ENCOUNTER 2025-01-19 04:35 | Inpatient (IN) | payer OTHER ==
[~2025-01-19] VITALS: Ht 172.7 cm; Wt 90.1 kg
[2025-01-19 05:01] LABS: BASO % 0.3 % (0.0-1.0); EOS # 0.1 10^3/uL (0.0-0.5); HEMATOCRIT 30.5 % (36.0-47.0); HEMOGLOBIN 10.1 g/dl (12.0-15.5); LYMPH # 2.7 10^3/uL (1.5-5.0); LYMPH % 18.8 % (24.0-44.0); MEAN CORPUSCULAR HEMOGLOBIN 29.8 pg (27.0-33.0); MEAN CORPUSCULAR HGB CONC 33.1 g/dl (32.0-36.5); MONO # 1.1 10^3/uL (0.0-0.8); MONO % 7.9 % (2.0-8.0); NEUTROPHILS # 10.1 10^3/uL (1.5-8.5); NEUTROPHILS % 71.4 % (36.0-66.0); PLATELET COUNT, AUTOMATED 352 10^3/uL (150-450); RED BLOOD COUNT 3.39 10^6/uL (4.00-5.40); WHITE BLOOD COUNT 14.1 10^3/uL (4.0-10.0)
[2025-01-19 05:30] LABS: CK-MB VALUE MASS 1.9 NG/ML (<3.6)
[2025-01-19 05:31] LABS: BLOOD UREA NITROGEN 14 MG/DL (9-23); CALCIUM LEVEL 8.4 MG/DL (8.5-10.1); CARBON DIOXIDE LEVEL 30 MMOL/L (20-31); CHLORIDE LEVEL 100 MMOL/L (98-107); CPK CREATINE PHOSPHOKINASE 76 U/L (34-145); CREATININE FOR GFR 0.65 MG/DL (0.55-1.30); GLOMERULAR FILTRATION RATE > 60.0 (>51); GLUCOSE, FASTING 94 MG/DL (60-100); POTASSIUM SERUM 3.8 MMOL/L (3.5-5.1); SODIUM LEVEL 136 MMOL/L (136-145)
[2025-01-19] MEDS ORDERED: ISOVUE-370 76% 100ML VIAL As Ordered ONE (05:38)
[2025-01-19] MEDS: cefTRIAXone SOD 2 GM in DEXTROSE 5% (D5W) ADV/MINI-BAG 50 ML IV ONE (06:22)
[2025-01-19] MEDS: KETOROLAC 30 MG/ML 1ML VIAL IV ONE (06:22)
[2025-01-19] MEDS: AZITHROMYCIN 250MG TABLET PO ONE (06:22)
[2025-01-19] MEDS: IPRATROPIUM 0.5MG/ALBUTEROL 2.5MG INH SOL UD 3ML NEB SCH ×2 (06:31→15:20)
[2025-01-19 06:32] LABS: ABG BASE EXCESS -2.3 (-2.0-2.0); ABG HCO3 21.7 MMOL/L (22.0-26.0); ABG O2 SATURATION 95.5 % (95.0-99.0); ABG PARTIAL PRESSURE CO2 34.6 mmHg (35.0-45.0); ABG PARTIAL PRESSURE O2 78.9 mmHg (75.0-100.0); ABG STANDARD HCO3 22.5 MMOL/L. (22.0-26.0); ABG TOTAL CO2 22.7 MMOL/L (22.0-29.0); ABG pH (ARTERIAL) 7.415 UNITS (7.350-7.450)
[2025-01-19 06:57] LABS: CK-MB VALUE MASS 1.5 NG/ML (<3.6)
[2025-01-19 06:59] LABS: MB/CK RELATIVE INDEX 2.2 (< OR =4)
[2025-01-19 07:06] LABS: PROCALCITONIN 0.07 ng/ml
[2025-01-19] MEDS: ACETAMINOPHEN *IV* 1,000 MG in IV 1 EA IV ONE (07:52)
[2025-01-19] MEDS ORDERED: PROMETHAZINE 25MG/ML 1ML VIAL IV PRN (07:55)
[2025-01-19] MEDS ORDERED: ACETAMINOPHEN 500 MG TAB PO ONE (07:55)
[2025-01-19] MEDS ORDERED: VENLAFAXINE 37.5 MG TAB PO ONE ×2 (07:55)
[2025-01-19] MEDS ORDERED: IPRATROPIUM 0.5MG/ALBUTEROL 2.5MG INH SOL UD 3ML NEB PRN (07:55)
[2025-01-19] MEDS: IPRATROPIUM 0.5MG/ALBUTEROL 2.5MG INH SOL UD 3ML NEB ONE (07:55)
[2025-01-19] MEDS: VENLAFAXINE **XR** 75MG CAPSULE PO SCH (09:00)
[2025-01-19] MEDS: DOXYCYCLINE HYCLATE 100 MG in DEXTROSE 5% (D5W) MINI-BAG PLU 100 ML IV SCH (09:14)
[2025-01-19] MEDS ORDERED: DOCU100C16 PO (09:48)
[2025-01-19] MEDS ORDERED: FERR325T3 PO (09:48)
[2025-01-19] MEDS ORDERED: FURO20TA2 PO (09:48)
[2025-01-19] MEDS ORDERED: HOME MED LIST COMPLETE! XX SCH (09:55)
[2025-01-19] MEDS: methylPREDNISolone 125MG 2ML VIAL IV ONE (10:23)
[2025-01-19] MEDS: PANTOPRAZOLE 40MG TAB (PROTONIX) PO SCH (10:23)
[2025-01-19] MEDS: ENOXAPARIN 40MG/0.4ML SYRINGE (J1650 PER 10MG) SC ONE (10:23)
[2025-01-19] MEDS: guaiFENesin ER TABLET 600 MG TAB PO ONE (10:23)
[2025-01-19] MEDS: MONTELUKAST 10 MG TAB PO ONE (10:23)
[2025-01-19] MEDS: CETIRIZINE (ZyrTEC) 10 MG TAB PO ONE (10:23)
[2025-01-19] MEDS: NICOTINE POLACRILEX 2 MG GUM PO ONE (10:24)
[2025-01-19] MEDS: NICOTINE 14 MG/24 HR TRANSDERMAL TD SCH (10:24)
[2025-01-19] MEDS: METHADONE 10MG TAB PO ONE (11:00)
[2025-01-19] MEDS: KETOROLAC 30 MG/ML 1ML VIAL IV SCH (12:10)
[2025-01-19 12:50] LABS: BARBITURATES URINE NEGATIVE (NEGATIVE); BENZODIAZEPINES URINE NEGATIVE (NEGATIVE); CANNABINOIDS URINE NEGATIVE (NEGATIVE); COCAINE METABOLITE URINE NEGATIVE (NEGATIVE); OPIATES URINE NEGATIVE (NEGATIVE); PHENCYCLIDINE URINE NEGATIVE (NEGATIVE)
[2025-01-19 12:52] LABS: AMPHETAMINES LEVEL URINE POSITIVE (NEGATIVE); METHADONE URINE POSITIVE (NEGATIVE)
[2025-01-19] MEDS: methylPREDNISolone 40MG 1ML VIAL IV SCH (15:00)
[2025-01-19 16:27] VITALS: BP 122/57; TEMP 97.2; O2SAT 95
[2025-01-19 20:00] VITALS: BP 121/58; TEMP 97.2; O2SAT 93
[2025-01-19] MEDS: ACETAMINOPHEN 500 MG TAB PO PRN (21:30)
[2025-01-20 03:30] VITALS: BP 114/65; TEMP 96.8; O2SAT 93
[2025-01-20 04:30] VITALS: TEMP 97.4
[2025-01-20 05:20] LABS: HEMATOCRIT 30.4 % (36.0-47.0); MEAN CORPUSCULAR HEMOGLOBIN 29.8 pg (27.0-33.0); MEAN CORPUSCULAR HGB CONC 32.9 g/dl (32.0-36.5); MEAN CORPUSCULAR VOLUME 90.5 fl (80.0-96.0); PLATELET COUNT, AUTOMATED 377 10^3/uL (150-450); RED BLOOD COUNT 3.36 10^6/uL (4.00-5.40); WHITE BLOOD COUNT 15.2 10^3/uL (4.0-10.0)
[2025-01-20 05:41] LABS: BLOOD UREA NITROGEN 19 MG/DL (9-23); CALCIUM LEVEL 8.8 MG/DL (8.5-10.1); CARBON DIOXIDE LEVEL 27 MMOL/L (20-31); CHLORIDE LEVEL 104 MMOL/L (98-107); CREATININE FOR GFR 0.55 MG/DL (0.55-1.30); GLOMERULAR FILTRATION RATE > 60.0 (>51); GLUCOSE, FASTING 186 MG/DL (60-100); POTASSIUM SERUM 4.3 MMOL/L (3.5-5.1); SODIUM LEVEL 138 MMOL/L (136-145)
[2025-01-20 05:51] LABS: LYMPHOCYTES 7 % (16-44); MONOCYTES 2 % (0-5); NEUTROPHILS 90 % (28-66); PLATELET ESTIMATE NORMAL (NORMAL)
[2025-01-20] MEDS: cefTRIAXone SOD 2 GM in DEXTROSE 5% (D5W) ADV/MINI-BAG 50 ML IV SCH (06:21)
[2025-01-20] MEDS ORDERED: METH10CO3 PO (09:39)
[2025-01-20] MEDS: METHADONE 10MG TAB PO SCH (11:43)
[2025-01-20 12:00] VITALS: BP 124/66; TEMP 96.6; O2SAT 95
[2025-01-20] MEDS: DOXYCYCLINE HYCLATE 100MG TABLET PO SCH (20:32)
[2025-01-20 21:15] VITALS: BP 122/57; TEMP 97.7; O2SAT 94
[2025-01-21] MEDS: methylPREDNISolone 40MG 1ML VIAL IV SCH (03:36)
[2025-01-21 03:38] VITALS: BP 124/63; TEMP 97.3; O2SAT 95
[2025-01-21 05:25] LABS: BASO % 0.1 % (0.0-1.0); EOS % 0.1 % (0.0-3.0); HEMATOCRIT 29.8 % (36.0-47.0); HEMOGLOBIN 9.5 g/dl (12.0-15.5); LYMPH # 2.4 10^3/uL (1.5-5.0); LYMPH % 12.2 % (24.0-44.0); MEAN CORPUSCULAR HEMOGLOBIN 29.1 pg (27.0-33.0); MEAN CORPUSCULAR HGB CONC 31.9 g/dl (32.0-36.5); MEAN CORPUSCULAR VOLUME 91.1 fl (80.0-96.0); MONO % 5.2 % (2.0-8.0); NEUTROPHILS # 16.2 10^3/uL (1.5-8.5); NEUTROPHILS % 81.5 % (36.0-66.0); PLATELET COUNT, AUTOMATED 441 10^3/uL (150-450); RED BLOOD COUNT 3.27 10^6/uL (4.00-5.40); WHITE BLOOD COUNT 19.9 10^3/uL (4.0-10.0)
[2025-01-21 05:47] LABS: BLOOD UREA NITROGEN 21 MG/DL (9-23); CALCIUM LEVEL 8.8 MG/DL (8.5-10.1); CARBON DIOXIDE LEVEL 27 MMOL/L (20-31); CHLORIDE LEVEL 102 MMOL/L (98-107); CREATININE FOR GFR 0.55 MG/DL (0.55-1.30); GLOMERULAR FILTRATION RATE > 60.0 (>51); GLUCOSE, FASTING 119 MG/DL (60-100); POTASSIUM SERUM 4.4 MMOL/L (3.5-5.1); SODIUM LEVEL 137 MMOL/L (136-145)
[2025-01-21 08:54] LABS: PROCALCITONIN 0.08 ng/ml
[2025-01-21 12:00] VITALS: BP 132/67; TEMP 97.7; O2SAT 96
[2025-01-21] MEDS ORDERED: PANT40TA29 PO (16:21)
[2025-01-21] MEDS ORDERED: DOXY100T PO (16:21)
[2025-01-21] MEDS ORDERED: PRED10TA2 PO (17:03)
== END 2025-01-21 17:51 | disposition home or self-care (01) | DRG 720 ==
LOC: EDBD 04:35 → M ED 04:35 → M ED INP 07:50 → M MSPAV 16:19
PROVIDERS: ADMIT General Practice; ATTEND Student in an Organized Health Care Education/Training Program
PROC: B246ZZZ Ultrasonography of Right and Left Heart (ICD-10-PCS; principal; 2025-01-20)
DX: A41.9 Sepsis, unspecified organism (principal); G93.41 Metabolic encephalopathy; J18.9 Pneumonia, unspecified organism; I27.20 Pulmonary hypertension, unspecified; J45.901 Unspecified asthma with (acute) exacerbation; K21.9 Gastro-esophageal reflux disease without esophagitis; J44.9 Chronic obstructive pulmonary disease, unspecified; F41.9 Anxiety disorder, unspecified; F32.A Depression, unspecified; F43.10 Post-traumatic stress disorder, unspecified; K59.09 Other constipation; F17.200 Nicotine dependence, unspecified, uncomplicated; E11.9 Type 2 diabetes mellitus without complications; I70.0 Atherosclerosis of aorta; B97.10 Unspecified enterovirus as the cause of diseases classified elsewhere; B97.89 Other viral agents as the cause of diseases classified elsewhere; Z86.711 Personal history of pulmonary embolism; Z79.899 Other long term (current) drug therapy; Z88.5 Allergy status to narcotic agent; Z91.030 Bee allergy status

== ENCOUNTER → 2025-07-02 | Outpatient (CLI) | payer OTHER, MEDICAID ==
[~2025-07-02] MED LIST changes: +DOCU100C16 PO; +DOXY100T PO; +FERR325T3 PO; +FURO20TA2 PO; -IBUP-1022 PO; +IBUP600T42 PO; +METH10CO3 PO; +PRED10TA2 PO
== END ==
LOC: M SOG 13:16
PROVIDERS: ATTEND Neuromusculoskeletal Medicine, Sports Medicine
DX: M17.12 Unilateral primary osteoarthritis, left knee (principal); Z53.9 Procedure and treatment not carried out, unspecified reason

== ENCOUNTER 2025-07-03 12:17 | Emergency (ER) | payer MEDICAID, OTHER ==
[2025-07-03 14:09] LABS: BASO # 0.1 10^3/uL (0.0-0.2); BASO % 0.7 % (0.0-1.0); EOS # 0.3 10^3/uL (0.0-0.5); EOS % 2.8 % (0.0-3.0); LYMPH # 3.7 10^3/uL (1.5-5.0); LYMPH % 39.6 % (24.0-44.0); MONO # 1.0 10^3/uL (0.0-0.8); MONO % 10.1 % (2.0-8.0); NEUTROPHILS # 4.4 10^3/uL (1.5-8.5); NEUTROPHILS % 46.6 % (36.0-66.0); PLATELET COUNT, AUTOMATED 375 10^3/uL (150-450)
[2025-07-03 14:29] LABS: CALCIUM LEVEL 8.9 MG/DL (8.5-10.1); CARBON DIOXIDE LEVEL 28 MMOL/L (20-31); CHLORIDE LEVEL 106 MMOL/L (98-107); CREATININE FOR GFR 0.68 MG/DL (0.55-1.30); GLOMERULAR FILTRATION RATE > 90.0 (>51); POTASSIUM SERUM 4.1 MMOL/L (3.5-5.1); SODIUM LEVEL 140 MMOL/L (136-145)
[2025-07-03 16:01] VITALS: BP 142/58; TEMP 98.1; O2SAT 96
== END 2025-07-03 16:45 | disposition home or self-care (01) ==
LOC: M ED 12:17
DX: F43.0 Acute stress reaction (principal); F41.9 Anxiety disorder, unspecified; J45.909 Unspecified asthma, uncomplicated; J44.9 Chronic obstructive pulmonary disease, unspecified; F43.10 Post-traumatic stress disorder, unspecified; F17.210 Nicotine dependence, cigarettes, uncomplicated; Z88.5 Allergy status to narcotic agent; Z91.030 Bee allergy status; Z79.2 Long term (current) use of antibiotics; Z79.4 Long term (current) use of insulin; Z79.52 Long term (current) use of systemic steroids; Z79.899 Other long term (current) drug therapy